=== PATIENT | female | born 1975 | race Caucasian/White ===

== ENCOUNTER 2020-01-26 11:41 | Emergency (ER) | payer OTHER ==
[~2020-01-26] VITALS: Ht 157.5 cm; Wt 54.4 kg
[2020-01-26 12:00] VITALS: BP 130/88
--- NOTE | 2020-01-26 12:17 | ER.PDOC ---
General Chief Complaint: Requesting Medical Care Stated Complaint: ABD PAIN Time seen by MD: 12:05 Source: patient Exam Limitations: no limitations History of Present Illness Initial Comments abdominal pain for two days left abd to left flank, sharp with frequency. Timing/Duration: other Severity/Quality: moderate Radiation: flank Vital Signs First Vital Signs Date Time Temp Pulse Resp B/P (MAP) Pulse Ox O2 Delivery O2 Flow Rate FiO2 01/26/20 12:00 98.1 96 16 01/26/20 12:00 99 01/26/20 12:00 130/88 (102) Room Air Last Vital Signs Date Time Temp Pulse Resp B/P (MAP) Pulse Ox O2 Delivery O2 Flow Rate FiO2 01/26/20 12:00 98.1 96 16 130/88 (102) 99 Room Air Constitutional: denies fever EENTM: denies eye pain Respiratory: denies cough Cardiovascular: denies chest pain Gastrointestinal: abdominal pain; denies diarrhea Genitourinary: flank pain Musculoskeletal: denies neck pain Skin: denies rash Psychiatric/Neurological: denies headache Endocrine: denies flushing Hematologic/Lymphatic: denies blood clots Physical Exam General Appearance: No Apparent Distress, WD/WN HEENT: PERRL/EOMI Neck: Non-Tender, Full Range of Motion Respiratory: chest non-tender, lungs clear Gastrointestinal: Soft, Tenderness Back: Normal Inspection, No CVA Tenderness Extremities: Normal Range of Motion 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 Results/Orders Results/Orders Orders - IHSAN FREEDMAN MD Cbc With Auto Diff (01/26/20 12:15) Comprehensive Metabolic Panel (01/26/20 12:15) Amylase (01/26/20 12:15) Lipase (01/26/20 12:15) Helicobacter Pylori (01/26/20 12:15) PT (01/26/20 12:15) Partial Thromboplastin Time. (01/26/20 12:15) Hcg Qualitative Serum (01/26/20 12:15) Urinalysis (01/26/20 12:15) Saline Lock (01/26/20 12:15) Ct Abd/Pelvis Wo Iv Contrast (01/26/20 12:15) Ketorolac Tromethamine (Toradol) (01/26/20 12:30) Ondansetron Hcl/Pf (Zofran) (01/26/20 12:30) Ondansetron (Zofran Odt) (01/26/20 13:20) Ketorolac Tromethamine (Toradol) (01/26/20 13:30) Vital Signs Date Time Temp Pulse Resp B/P (MAP) Pulse Ox O2 Delivery O2 Flow Rate FiO2 01/26/20 12:00 98.1 96 16 130/88 (102) 99 Room Air 01/26/20 12:00 98.1 96 16 99 01/26/20 12:00 98.1 96 16 Administered Medications Medications (Trade) Dose Ordered Sig/Irwin Route PRN Reason Start Time Stop Time Status Last Admin Dose Admin Ketorolac Tromethamine (Toradol) 60 mg OT ONCE IM 01/26/20 13:30 01/26/20 13:31 DC 01/26/20 13:27 60 MG Ondansetron HCl (Zofran) 4 mg Q4H PRN IV NAUSEA / VOMITING 01/26/20 12:30 02/25/20 12:29 UNV 01/26/20 13:27 4 MG Laboratory Tests Test 01/26/20 12:39 01/26/20 12:45 White Blood Count 7.4 10^3/uL (4.5-11.0) Red Blood Count 4.64 10^6/uL (4.00-5.20) Hemoglobin 14.3 g/dL (12.0-15.0) Hematocrit 41.4 % (36.0-46.0) Mean Corpuscular Volume 89.2 fL (78-100) Mean Corpuscular Hemoglobin 30.8 pg (26-34) Mean Corpuscular Hemoglobin Concent 34.5 g/dL (33-36.5) Red Cell Distribution Width 12.5 % (11.5-14.5) Platelet Count 322 10^3/uL (150-400) Mean Platelet Volume 10.2 fL (7.8-11.0) Neutrophils (%) (Auto) 58.2 % (41.0-85.0) Lymphocytes (%) (Auto) 29.9 % (24.0-44.0) Monocytes (%) (Auto) 9.4 % (5.0-12.0) Neutrophils # (Auto) 4.3 10^3/uL (1.8-7.7) Lymphocytes # (Auto) 2.20 10^3/uL1 (1.0-4.8) Monocytes # (Auto) 0.7 10^3/uL (0.3-0.8) Absolute Immature Granulocyte (auto 0 10^3 u/L (0-2) Absolute Eosinophils (auto) 0.2 10^3/uL (0.0-0.2) Immature Granulocytes % 0.00 % (0.00-0.50) Eosinophils % 2.2 % (0.0-5.0) Basophils % 0.3 % (0.0-0.2) H Basophils # 0.0 10^3/uL (0.0-0.1) Prothrombin Time 9.8 SEC (9.3-11.3) Prothrombin Time INR (Non-Therap) 1.0 Activated Partial Thromboplast Time 24.1 SEC (24.67-30.72) Sodium Level 138 mmol/L (132-145) Potassium Level 4.3 mmol/L (3.6-5.2) Chloride Level 103.0 mmol/L (96-109) Carbon Dioxide Level 26.2 mmol/L (20.0-32) Anion Gap 13.1 Blood Urea Nitrogen 14 mg/dL (7-18) Creatinine 0.85 mg/dL (0.59-1.40) Estimated GFR () 88.7 (>/=60) Est GFR (CKD-EPI)(Non-Afr English) 73.3 (>/=60) BUN/Creatinine Ratio 16.0 Glucose Level 95 mg/dL (70-110) Calcium Level 8.9 mg/dL (8.4-10.5) Total Bilirubin 0.3 mg/dL (0.2-1.0) Aspartate Amino Transferase (AST) 34 U/L (0-35) Alanine Aminotransferase (ALT) 44 U/L (12-78) Alkaline Phosphatase 64 U/L (50-136) Total Protein 7.4 g/dL (6.4-8.2) Albumin 3.6 g/dL (3.4-5.0) Globulin 3.8 Albumin/Globulin Ratio 0.947 Amylase Level 97 U/L (25-115) Lipase 133 U/L (114-286) Serum HCG, Qualitative NEGATIVE (NEGATIVE) Helicobacter pylori Screen NEGATIVE (NEGATIVE) Urine Collection Type UNKNOWN Urine Color YELLOW (YELLOW) Urine Appearance CLEAR (CLEAR) Urine Bilirubin NEGATIVE MG/DL (NEGATIVE) Urine Ketones NEGATIVE (NEGATIVE) Urine Specific Reading >=1.030 (1.005-1.035) Urine pH 6.0 (5.0-6.0) Urine Protein NEGATIVE (NEGATIVE) Urine Urobilinogen 0.2 (NEGATIVE) Urine Nitrate NEGATIVE (NEGATIVE) Urine Leukocyte Esterase NEGATIVE (NEGATIVE) Urine Blood NEGATIVE (NEGATIVE) Urine Glucose NORMAL (NEGATIVE) ER DEPART Departure Time of Disposition: 14:00 Disposition: 01 HOME, SELF-CARE Impression: Primary Impression: Abdominal pain Additional Impressions: Pulmonary nodule Cholelithiasis Condition: Stable Patient Instructions: Abdominal Pain, Cholelithiasis, Pulmonary Nodule Referrals: PCP,UNKNOWN (PCP) PRIMARY CARE PROVIDER TRACY GÓMEZ MD, GIANG T MD Additional Instructions: return for any worsening symptoms, see doctors for referral as you have a pulmonary nodule. Duration or Time Spent with Pa: 15 Problem Qualifiers IHSAN FREEDMAN MD Jan 26, 2020 12:17
[2020-01-26] MEDS ORDERED: TORADOL IV PRN (12:30)
[2020-01-26] MEDS ORDERED: ZOFRAN IV PRN (12:30)
[2020-01-26 13:00] LABS: BASOPHIL % 0.3 % (0.0-0.2); EOSINOPHIL # 0.2 10^3/uL (0.0-0.2); EOSINOPHIL % 2.2 % (0.0-5.0); LYMPHOCYTES % 29.9 % (24.0-44.0); MEAN CORP HGB 30.8 pg (26-34); MONOCYTES # 0.7 10^3/uL (0.3-0.8); MONOCYTES % 9.4 % (5.0-12.0); NEUTROPHIL # 4.3 10^3/uL (1.8-7.7); NEUTROPHILS % 58.2 % (41.0-85.0); PLATELET COUNT 322 10^3/uL (150-400); RED CELL DISTRIBUTION WIDTH 12.5 % (11.5-14.5)
[2020-01-26 13:08] LABS: CALCIUM 8.9 mg/dL (8.4-10.5); CARBON DIOXIDE 26.2 mmol/L (20.0-32)
[2020-01-26 13:09] LABS: APPEARANCE,URINE CLEAR (CLEAR); BILIRUBIN,URINE NEGATIVE (NEGATIVE); UA COLOR YELLOW (YELLOW)
[2020-01-26 13:10] LABS: UROBILINOGEN,URINE 0.2 (NEGATIVE)
[2020-01-26] MEDS ORDERED: TORADOL ONE (13:20)
[2020-01-26] MEDS ORDERED: ZOFRAN ODT ONE (13:20)
--- NOTE | 2020-01-26 13:28 | NUR ---
ZOFRAN GIVEN 4MG ODT.
[2020-01-26] MEDS ORDERED: TORADOL IM ONE (13:30)
[2020-01-26 13:45] VITALS: BP 103/80
== END 2020-01-26 14:35 | disposition home or self-care (01) ==
LOC: ER 11:41 → EDUNIT# 11:41 → ER 14:35
DX: K80.20 Calculus of gallbladder without cholecystitis without obstruction (principal); R91.1 Solitary pulmonary nodule; Z79.1 Long term (current) use of non-steroidal anti-inflammatories (NSAID); Z79.899 Other long term (current) drug therapy
CPT/HCPCS: 36415; 74176; 80053; 81003; 82150; 83690; 84703; 85025; 85610; 85730; 86677; 96372; 96374; 99285; J1885; 99284

== ENCOUNTER 2020-01-31 04:59 | Emergency (ER) | payer OTHER ==
[~2020-01-31] VITALS: Ht 157.5 cm; Wt 54.4 kg
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
[2020-01-31 05:34] VITALS: BP 125/82
--- NOTE | 2020-01-31 05:47 | ER.PDOC ---
General Chief Complaint: Requesting Medical Care Stated Complaint: FATIGUE TRAVEL OUT OF US: No Time seen by MD: 05:42 Source: patient Exam Limitations: no limitations History of Present Illness Initial Comments Patient told me that her she has been doing Methamphetamine and feels tired. She has no complaints but her significant other brought her here. She denies any chest pain or SOB. No complaints. She also told me that she has not been sleeping well. Severity: mild Past Medical History Medical History: no pertinent history Surgical History: no surgical history Social History Drug Use: Amphetamines Review of Systems Constitutional: no symptoms reported EENTM: no symptoms reported Respiratory: no symptoms reported Cardiovascular: no symptoms reported Gastrointestinal: no symptoms reported Musculoskeletal: see HPI All Other Systems: Reviewed and Negative Physical Exam General Appearance: No Apparent Distress, WD/WN Neck: Non-Tender, Full Range of Motion, Supple, Normal Inspection Respiratory: chest non-tender, lungs clear, normal breath sounds, no respiratory distress, no accessory muscle use CVS: reg rate & rhythm, no murmur, no gallop, pulses nml, nml capillary refill Gastrointestinal: Normal Bowel Sounds, No Organomegaly, No Pulsatile Mass, Non Tender Back: Normal Inspection Extremities: Normal Range of Motion, Non-Tender, Normal Inspection 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 ER DEPART Departure Time of Disposition: 05:45 Disposition: 01 HOME, SELF-CARE Impression: Primary Impression: Methamphetamine abuse Additional Impression: Fatigue due to sleep pattern disturbance Condition: Stable Referrals: PCP,UNKNOWN (PCP) PRIMARY CARE PROVIDER Additional Instructions: F/U with your PCP as needed F/U with substance abuse Program Duration or Time Spent with Pa: 10 min Problem Qualifiers ANUEL XIE MD Jan 31, 2020 05:47
== END 2020-01-31 06:12 | disposition home or self-care (01) ==
LOC: ER 04:59
DX: F15.10 Other stimulant abuse, uncomplicated (principal)
CPT/HCPCS: 99281

== ENCOUNTER 2024-10-21 09:17 | Emergency (ER) | payer SELFPAY ==
[~2024-10-21] VITALS: Ht 157.5 cm; Wt 54.4 kg
[2024-10-21 09:17] VITALS: BP 111/62; PULSE 82; RESP 18; TEMP 98; O2SAT 98
[2024-10-21 10:12] VITALS: BP 114/61; PULSE 83; RESP 18; TEMP 98; O2SAT 98
[2024-10-21] MEDS ORDERED: SOLU-MEDROL ONE (10:19)
[2024-10-21] MEDS: SOLU-MEDROL IM STA (10:26)
[2024-10-21 10:28] VITALS: BP 114/61; PULSE 83; RESP 18; TEMP 98; O2SAT 98
== END 2024-10-21 10:28 | disposition home or self-care (01) ==
LOC: ER 09:17
DX: R05.2 Subacute cough (principal)
CPT/HCPCS: 99283; 71046; 96372; J2919; J2930